=== PATIENT | female | born 2000 | race Caucasian/White ===

== ENCOUNTER 2025-08-02 22:17 | Emergency (ER) | payer OTHER, SELFPAY ==
[2025-08-02 22:21] VITALS: BP 139/86
[2025-08-02 22:44] LABS: Hematocrit 39.1 % (37.0-47.0); Hemoglobin 13.5 g/dL (12.0-16.0); Mean Corp Hgb Conc. 34.5 g/dL (33.0-37.0); Mean Corpuscular Volume 82.1 fL (81.0-99.0); Nucleated Red Blood Cells % 0 %; Platelet Count 364 10^3/uL (130-400); Red Cell Dist. Width 12.4 % (11.5-14.5)
[2025-08-02 22:57] LABS: ALT (SGPT) 17 U/L (0-35); AST (SGOT) 20 U/L (14-36); Albumin 4.6 g/dl (3.5-5.0); Alkaline Phosphatase 50 U/L (38-126); Blood Urea Nitrogen 9 mg/dl (7-17); Calcium 9.5 mg/dl (8.4-10.2); Carbon Dioxide 26 mmol/L (22-30); Chloride 102 mmol/L (98-107); Glucose 91 mg/dl (70-99); Potassium 3.8 mmol/L (3.5-5.1); Sodium 134 mmol/L (135-145); Total Protein 7.2 g/dl (6.3-8.2); eGFR > 60.00
[2025-08-02 23:10] LABS: Troponin I < 0.012 ng/ml
[2025-08-03 00:22] VITALS: BP 115/74
[2025-08-03 00:23] VITALS: BMI 22.1
[2025-08-03 01:00] VITALS: BP 100/66
[2025-08-03 02:06] LABS: Troponin I < 0.012 ng/ml
--- NOTE | 2025-08-03 02:16 | ED.GENMED ---
History of Present Illness
General
Chief Complaint: Chest Pain
Time Seen by Provider: 08/03/25 00:44
History of Present Illness
History of Present Illness:
Note:
CHIEF COMPLAINT(S)
Chest discomfort, nausea, and shoulder pain.
HISTORY OF PRESENT ILLNESS
The patient is a 25-year-old female who presented with chest discomfort that began around 8 PM while she was sitting in bed. She reported associated symptoms of nausea and shoulder pain. The patient noted palpitations, expressing that she felt her
heart beating in her chest. 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 The patient
consumes a double espresso shot in the morning and is on Ritalin for ADHD for the past two to three years.
The patient denied any recent increase in caffeine intake and affirmed that her dietary habits were consistent, having had a frozen meal for dinner. She also recounted a sensation similar to the watery feeling in the mouth that occurs before
vomiting. She has experienced anxiety attacks previously but did not feel that her current symptoms were krys to those episodes.
The patient confirmed no recent use of any new medications aside from Ritalin. No other significant symptoms such as dizziness or shortness of breath were reported. The patient is actively engaged in her studies at the [employer] program in [place],
with no specific plans yet for her future career choice.
PAST MEDICAL AND SURGICAL HISTORY
Attention-Deficit/Hyperactivity Disorder (ADHD).
MEDICATIONS
Ritalin for ADHD.
REVIEW OF SYSTEMS
- Cardiovascular: Chest discomfort, palpitations.
- Gastrointestinal: Nausea.
- Musculoskeletal: Shoulder pain.
PHYSICAL EXAM
General: Alert, no acute distress.
Skin: Warm, dry.
Head: Normocephalic, atraumatic.
Neck: Supple, trachea midline.
Eye Ears, nose, mouth, and throat: Oral mucosa moist.
Cardiovascular: Normal peripheral perfusion, no edema.
Respiratory: Respirations are non-labored.
Gastrointestinal: Abdomen nondistended.
Back: Normal range of motion, normal alignment.
Musculoskeletal: Normal range of motion, normal strength.
Neurological: Alert and oriented to person, place, time, and situation; no focal neurological deficit observed.
Psychiatric: Cooperative, appropriate mood & affect.
PLAN
- Repeat EKG examination to evaluate cardiac function.
- Provide a referral to a chemist steroids for further evaluation and potential Holter monitor assessment.
- Ensure follow-up with the primary care physician, Dr. Tiffanie Short, in [facility] for comprehensive management and consideration of a Holter monitor.
- Discussed the importance of monitoring symptoms and advised returning if symptoms worsen or new symptoms develop.
DIFFERENTIAL DIAGNOSIS
The Differential Diagnosis includes, in no particular order and is not limited to:
1. Anxiety/panic attack
2. Gastroesophageal reflux disease (GERD)
3. Costochondritis
4. Cardiac arrhythmia
5. Myocardial ischemia
6. Musculoskeletal pain
7. Mitral valve prolapse
8. Cervical radiculopathy
9. Pericarditis
10. Pulmonary embolism
Disposition:
SUMMARY OF ENCOUNTER
The patient is a 25-year-old female who presented with brief chest discomfort, nausea, and shoulder pain, without any associated shortness of breath or persistent chest pain. In the emergency department, two troponin tests were conducted and both
were negative, ruling out an acute coronary syndrome. An electrocardiogram (EKG) was performed and found to be normal. Given the non-acute findings and the patients stable condition, the decision was made to discharge her with instructions to follow
up with her primary care provider for further evaluation if necessary.
DISPOSITION
Discharge
PLAN
- Repeat EKG examination to evaluate cardiac function.
- Provide a referral to a chemist steroids for further evaluation and potential Holter monitor assessment.
- Ensure follow-up with the primary care physician, Dr. Tiffanie Short, in [facility] for comprehensive management and consideration of a Holter monitor.
- Discussed the importance of monitoring symptoms and advised returning if symptoms worsen or new symptoms develop.
INDEPENDENT REVIEW OF LABS AND INTERPRETATION OF TESTS
- My independent review of the troponin levels is that both results were negative.
- My independent EKG interpretation is that the EKG was normal.
PATIENT EDUCATION AND COUNSELING
The patient was advised on the importance of monitoring symptoms and instructed to seek medical attention if symptoms worsen or new symptoms develop. Information was provided about the potential benefits of a further cardiac evaluation, including a
Holter monitor, to assess cardiac rhythm disturbances.
FOLLOW-UP INSTRUCTIONS
The patient should follow up with her primary care physician, Dr. Tiffanie Short, for comprehensive management and consideration of a Holter monitor.
MEDICAL DECISION MAKING
- Number and Complexity of Problems Addressed: Chronic conditions affecting care (ADHD). Differential diagnosis included anxiety/panic attack, gastroesophageal reflux disease (GERD), costochondritis, cardiac arrhythmia, myocardial ischemia,
musculoskeletal pain, mitral valve prolapse, cervical radiculopathy, pericarditis, pulmonary embolism.
- Data:
- Category 1: My independent review of EKG was normal.
- Category 1: My independent review of troponin indicated two negative findings.
- Risk:
- Consideration of Admission/Observation: Escalation of care including admission/observation was considered given the complexity and risk of the patients presenting complaint, exam findings, and/or their underlying comorbidities. However, ultimately
I feel the patient is safe for outpatient management with close follow up. Reasoning: Work-up reassuring, does not reveal any acute life/organ-threatening processes, patients symptoms well controlled upon reevaluation, reexamination was reassuring,
vitals are stable, patient agreeable with discharge, reliable for follow-up.
DIAGNOSIS
- R07.89 Other chest pain
- F90.9 Attention-deficit hyperactivity disorder, unspecified type
Past History
Past History
ED Past Medical History: None
ED Past Surgical History: Orthopedic
Social History
Tobacco: Non-smoker
Phy Exam
Physical Exam
Physical Exam:
.
Scores
Heart Score for Chest Pain Patients
STEMI patient?: No
History: Moderately Suspicious
ECG: Normal
Age: </= 45 years
Risk Factors: No Risk Factors
Troponin: </= Normal Limit
Heart Score for Chest Pain Patients: 1
Heart Score Risk: 2.5% MACE over next 6 weeks
Course
Orders/Labs/Results
Orders:
Orders
08/02/25 22:24
EKG [Electrocardiogram (*1)] Urgent
Reason for Study: Tachycardia
EKG- Treatment ONCE
08/02/25 22:33
CBC/With Diff [Complete Blood Count/With Diff] Urgent
CMP [Comprehensive Metabolic Panel] Urgent
Troponin I Urgent
08/03/25 01:30
EKG [Electrocardiogram (*1)] Urgent
Reason for Study: Chest Pain
EKG- Treatment ONCE
08/03/25 01:35
Troponin I Urgent
Abnormal Lab Results
08/02/25
22:33
Absolute Lymphs (auto) 3.8 H 10^3/uL
(1.2-3.4)
Absolute Monos (auto) 0.8 H 10^3/uL
(0.1-0.6)
Sodium 134 L mmol/L
(135-145)
08/02/25 22:33
08/02/25 22:33
Vital Signs
Initial and Last Documented VS:
Initial Vital Signs
Temp Pulse Resp BP Pulse Ox
97.9 F 125 15 139/86 100
08/02/25 22:21 08/02/25 22:21 08/02/25 22:21 08/02/25 22:21 08/02/25 22:21
Last Documented Vital Signs
Temp Pulse Resp BP Pulse Ox
97.9 F 72 19 100/66 99
08/02/25 22:21 08/03/25 02:15 08/03/25 02:15 08/03/25 01:00 08/03/25 02:20
*Pulse Oximetry
SaO2: 99
Oxygen Mode of Delivery: Room air
Patient hypoxic: not evaluated
*Critical Care Note
Total Time (30-74mins, 75-104mins- exclusive of procedures): Not Applicable
ED Attending Note
-
Portions of this chart may have been created with voice recognition software.� Occasional wrong word or��sound alike� substitutions may have occurred due to the inherent limitations of voice recognition software.
Discharge Plan
Departure
Patient Disposition: Home (Routine Discharge)
Date of Disposition: 08/03/25
Time of Disposition: 02:17
Patient with high blood pressure during this ER visit?: No
Condition: Good
Discharge Problem:
Palpitations
Instructions: Palpitations - ED (DC), Chest Pain PCP Follow Up
Referrals:
Tiffanie Short DO [Family Provider, Family Practice]
Activity Restrictions/Additional Instructions:
Thank You for choosing [facility].
It was a pleasure meeting you and taking part in your care. We hope for your continued healing and wellness.
Please read discharge instructions in their entirety. However, they are for general education and may not describe your exact diagnosis at discharge. Information on your ER visit and medical conditions were discussed with you along with appropriate
follow up information...
If indicated, please take your medications as instructed and indicated on discharge paperwork.
Please schedule a follow up appointment as directed. Call to schedule an appointment
Please return to the emergency department with ANY change in, persisting, or worsening of symptoms. If any of your symptoms do not improve, or persist, or become more severe within 6-12 hours, please return to the emergency department for further
care.
Please return to the emergency department if you develop a headache, neck pain/stiffness, fever greater than 100.4F, chest pain, shortness of breath, persistent nausea, vomiting, slurred speech, difficulty walking, numbness/tingling, weakness, signs
of infection or any other symptoms that are worrisome to you.
If you have any questions or concerns please do not hesitate to call the Hospital at .
Interventions
Interventions:
*Risk Screen - Suicide Last Done: 08/02/25 22:21
*General Assessment Last Done: 08/02/25 22:21
*Neglect/Abuse Screening Last Done: 08/02/25 22:21
*ED- Fall Risk Assessment Last Done: 08/03/25 02:25
*ED COVID-19 Vaccine History Last Done: 08/02/25 22:21
*ED Influenza Vaccine History Last Done: 08/02/25 22:21
*Nursing Disposition Last Done: 08/03/25 02:25
ED- Cardiac Assessment Last Done: 08/03/25 00:25
Discharge Date and Time
Discharge Date/Time: 08/03/25 02:26
Print Language: BHUTANESE
== END 2025-08-03 02:26 | disposition home or self-care (01) ==
LOC: EMR 22:17
PROVIDERS: Student in an Organized Health Care Education/Training Program; EMERGENCY PHYSICIAN Student in an Organized Health Care Education/Training Program; FAMILY PHYSICIAN Family Medicine
DX: R00.2 Palpitations (principal); F90.9 Attention-deficit hyperactivity disorder, unspecified type
CPT/HCPCS: 99284; 80053; 84484; 85025; 93005